=== PATIENT | male | born 1985 | race Caucasian/White ===

== ENCOUNTER 2024-01-22 11:31 | Emergency (ER) | payer OTHER ==
[~2024-01-22] VITALS: Ht 177.8 cm; Wt 88.0 kg
[2024-01-22] MEDS: normal saline 1000ML IV soln IVB ONE (12:30)
[2024-01-22 12:40] LABS: BASOPHILS % (AUTO) 0.3 % (0-1); EOSINOPHILS # (AUTO) 0.1 X10'3 (0-0.9); HEMATOCRIT 46.3 % (42.0-52.0); HEMOGLOBIN 15.6 g/dl (14.0-17.9); LYMPHOCYTES # (AUTO) 2.2 X10'3 (1.1-4.8); LYMPHOCYTES % (AUTO) 23.9 % (21-51); MEAN CORPUSCULAR HEMOGLOBIN 29.6 PG (27.0-31.0); MEAN CORPUSCULAR HGB CONC 33.7 g/dL (33.0-36.5); MEAN CORPUSCULAR VOLUME 87.8 FL (78-98); MEAN PLATELET VOLUME 7.3 FL (7.4-10.4); MONOCYTES # (AUTO) 0.5 X10'3 (0-0.9); MONOCYTES % (AUTO) 5.7 % (2-12); NEUTROPHILS # (AUTO) 6.2 X10'3 (1.8-7.7); NEUTROPHILS % (AUTO) 69.1 % (42-75); PLATELET COUNT 289 X10'3 (140-440); RED BLOOD COUNT 5.27 X10'6 (4.70-6.10); RED CELL DISTRIBUTION WIDTH 13.8 % (11.5-14.5)
[2024-01-22 12:45] LABS: ALBUMIN 4.1 G/DL (3.4-5.0); ANION GAP 7 (8-16); BLOOD UREA NITROGEN 17 MG/DL (7-18); BUN/CREATININE RATIO 14.8 (10.0-20.0); CALCIUM 8.8 MG/DL (8.5-10.1); CHLORIDE 102 MMOL/L (99-107); CREATININE 1.15 MG/DL (0.60-1.10); GLUCOSE 123 MG/DL (70-104); POTASSIUM 3.6 MMOL/L (3.5-5.1); SODIUM 137 MMOL/L (135-145); TOTAL CARBON DIOXIDE 28.1 MMOL/L (24-32); eCRCL 88 ML/MIN; eGFR 70 ML/MIN
[2024-01-22] MEDS: proCHLORperazine 10 MG/2 ml inj IV ONE (13:24)
[2024-01-22] MEDS: normal saline 1000ml 1,000 ML IVB ONE (13:31)
[2024-01-22 15:02] VITALS: BP 106/67; PULSE 71; RESP 16; TEMP 97.6; O2SAT 98
== END 2024-01-22 15:06 | disposition home or self-care (01) ==
LOC: ER 11:31
DX: R51.9 Headache, unspecified (principal)
CPT/HCPCS: 36415; 70450; 80048; 85025; 96361; 96374; 99285; J0780; J7030